=== PATIENT | female | born 1960 | race Caucasian/White ===

== ENCOUNTER 2020-07-02 15:02 | Emergency (ER) | payer OTHER ==
[~2020-07-02] VITALS: Ht 170.2 cm; Wt 97.1 kg
[~2020-07-02 15:02] MED LIST: AZOR PO; EFFEXOR XR75 MG PO; LIPITOR PO
== END 2020-07-02 16:25 | disposition home or self-care (01) ==
LOC: ER 15:54
DX: U07.1 COVID-19 (principal); R05 Cough; R53.1 Weakness; I10 Essential (primary) hypertension; E78.5 Hyperlipidemia, unspecified
CPT/HCPCS: 99282